=== PATIENT | female | born 1955 ===

== ENCOUNTER 2021-07-19 09:45 | Inpatient (IN) | payer OTHER ==
[~2021-07-19] VITALS: Ht 160 cm; Wt 68.0 kg
[2021-07-19] MEDS ORDERED: AMLODI PO (11:53)
[2021-07-21] MEDS ORDERED: AMLODIPINE BESYL5 MG (09:30)
== END 2021-07-23 13:03 | disposition home or self-care (01) | DRG 735 ==
LOC: O/R 07-21 05:20 → OB/GYN 07-21 05:20 → SURH 07-21 07:00 → OB/GYN 07-21 12:13
PROVIDERS: ADMIT Specialist; ATTEND Specialist
PROC: 0UT9FZZ Resection of Uterus, Via Natural or Artificial Opening With Percutaneous Endoscopic Assistance (ICD-10-PCS; 2021-07-21)
PROC: 0UT7FZZ Resection of Bilateral Fallopian Tubes, Via Natural or Artificial Opening With Percutaneous Endoscopic Assistance (ICD-10-PCS; 2021-07-21)
PROC: 0UT2FZZ Resection of Bilateral Ovaries, Via Natural or Artificial Opening With Percutaneous Endoscopic Assistance (ICD-10-PCS; 2021-07-21)
PROC: 3E1M48Z Irrigation of Peritoneal Cavity using Irrigating Substance, Percutaneous Endoscopic Approach (ICD-10-PCS; 2021-07-21)
PROC: 07TC4ZZ Resection of Pelvis Lymphatic, Percutaneous Endoscopic Approach (ICD-10-PCS; principal; 2021-07-21 07:00)
DX: C54.1 Malignant neoplasm of endometrium (principal); Z20.822 Contact with and (suspected) exposure to COVID-19; N84.0 Polyp of corpus uteri